=== PATIENT | male | born 1950 | race Hispanic/Latino ===

== ENCOUNTER 2017-07-01 08:26 | Inpatient (IN) | payer MEDICARE ==
[~2017-07-01] VITALS: Ht 170.2 cm; Wt 84.5 kg
[2017-07-01 08:44] LABS: BASOPHILS % (AUTO) 0.3 % (0.0-5.0); HEMATOCRIT 36.9 % (42-54); LYMPHOCYTES % (AUTO) 12.2 % (21.0-51.0); MEAN CORPUSCULAR HEMOGLOBIN 31.2 pg (27.0-33.0); MEAN CORPUSCULAR HGB CONC 33.7 g/dL (32.0-36.0); MEAN CORPUSCULAR VOLUME 92.6 fL (79-99); NEUTROPHILS % (AUTO) 80.5 % (40.0-77.0); PLATELET COUNT (AUTO) 200 K/uL (130-400); RED BLOOD CELL COUNT(AUTO) 3.98 MIL/uL (4.50-6.20); RED CELL DISTRIBUTION WIDTH 16.9 % (11.0-15.5); WHITE BLOOD COUNT (AUTO) 14.3 K/uL (4.8-10.8)
[2017-07-01 09:01] LABS: INR 0.98 (0.85-1.15); PARTIAL THROMBOPLASTIN TIME 36.9 SEC (26.3-35.5); PROTHROMBIN TIME 10.3 SEC (9.6-11.6)
[2017-07-01] MEDS ORDERED: NITROGLYCERIN 1GM/1 INCH PACKET TD ONE (09:06)
[2017-07-01] MEDS ORDERED: ONDANSETRON HCL 4 MG/2 ML VIAL ONE (09:06)
[2017-07-01] MEDS ORDERED: FAMOTIDINE/PF 20 MG/2 ML VIAL IV ONE (09:07)
[2017-07-01] MEDS ORDERED: SODIUM CHLORIDE 0.9% 1000ML 1,000 ML IV ONE (09:08)
[2017-07-01 09:14] LABS: ALBUMIN 3.5 g/dL (3.5-5.0); BILIRUBIN,TOTAL 0.4 mg/dL (0.2-1.0); CREATINE KINASE MB 3.2 ng/mL (0.5-3.6); POTASSIUM 4.8 mmol/L (3.5-5.1); TOTAL PROTEIN, SERUM 7.7 g/dL (6.0-8.3)
[2017-07-01 09:16] LABS: CREATININE 11.3 mg/dL (0.5-1.5)
[2017-07-01] MEDS ORDERED: METRONIDAZOLE 500MG/100ML BAG 100 ML ONE (11:25)
[2017-07-01] MEDS ORDERED: AMLODIPINE BESYLATE 5 MG TAB PO ONE (11:25)
[2017-07-01] MEDS ORDERED: METOPROLOL TARTRATE 25 MG TAB ONE (11:25)
[2017-07-01 13:18] VITALS: BP 144/86
[2017-07-01] MEDS ORDERED: LABETALOL HCL 5 MG/ML 20ML VIAL IV PRN (14:12)
[2017-07-01] MEDS ORDERED: GLUCAGON 1MG KIT 1 MG ML IM PRN (14:15)
[2017-07-01] MEDS ORDERED: ONDANSETRON HCL 4 MG/2 ML VIAL IVP PRN (14:15)
[2017-07-01] MEDS ORDERED: ACETAMINOPHEN 325 MG TAB PO PRN (14:15)
[2017-07-01] MEDS ORDERED: DEXTROSE 50%-WATER 50 ML DISP.SYRIN IV PRN (14:15)
[2017-07-01] MEDS ORDERED: LOPERAMIDE HCL 2 MG CAP PO PRN (14:15)
[2017-07-01] MEDS: METRONIDAZOLE 500MG/100ML BAG 100 ML IVPB SCH ×2 (14:16→22:18)
[2017-07-01] MEDS: AMLODIPINE BESYLATE 5 MG TAB PO SCH (14:17)
[2017-07-01] MEDS: METOPROLOL TARTRATE 25 MG TAB PO SCH ×2 (14:18→20:24)
[2017-07-01 14:59] LABS: HEMOGLOBIN A1C 5.6 % (4.0-6.0)
[2017-07-01 15:32] LABS: CREATINE KINASE MB 2.5 ng/mL (0.5-3.6); CREATINE KINASE, TOTAL 90 U/L (21-232); MYOGLOBIN 415 ng/mL (10-92); TROPONIN I < 0.04 ng/mL (0.00-0.06)
[2017-07-01 16:08] VITALS: BP 144/88
[2017-07-01] MEDS ORDERED: INSULIN R PO SS1 SQ SCH (16:30)
[2017-07-01] MEDS ORDERED: AEC81 PO (18:14)
[2017-07-01] MEDS ORDERED: AMLO10TA2 PO (18:14)
[2017-07-01] MEDS ORDERED: CALC667C10 PO (18:14)
[2017-07-01] MEDS ORDERED: PRAV40TA3 PO (18:14)
[2017-07-01 19:58] VITALS: BP 146/74
[2017-07-01] MEDS: LEVOFLOXACIN 750 MG/D5W 150 ML 150 ML IV SCH (20:24)
[2017-07-01] MEDS: ATORVASTATIN CALCIUM 10 MG TABLET PO SCH (20:24)
[2017-07-01 21:09] LABS: CREATINE KINASE MB 2.3 ng/mL (0.5-3.6); CREATINE KINASE, TOTAL 96 U/L (21-232); MYOGLOBIN 423 ng/mL (10-92); TROPONIN I < 0.04 ng/mL (0.00-0.06)
[2017-07-01 23:23] VITALS: BP 126/69
[2017-07-02 03:43] VITALS: BP 131/68
[2017-07-02] MEDS: METRONIDAZOLE 500MG/100ML BAG 100 ML IVPB SCH ×3 (05:26→21:48)
[2017-07-02 07:00] VITALS: BP 155/75
[2017-07-02] MEDS: AMLODIPINE BESYLATE 5 MG TAB PO SCH (09:00)
[2017-07-02] MEDS: METOPROLOL TARTRATE 25 MG TAB PO SCH ×2 (09:00→20:53)
[2017-07-02] MEDS ORDERED: AMLODIPINE BESYLATE 5 MG TAB PO SCH (09:00)
[2017-07-02 11:00] VITALS: BP 163/80
[2017-07-02] MEDS: CALCIUM ACETATE 667 MG CAPSULE PO SCH ×2 (11:41→18:49)
[2017-07-02] MEDS: ASPIRIN 81 MG EC TAB PO SCH (11:41)
[2017-07-02] MEDS ORDERED: ACETAMINOPHEN-CODEINE 300/30MG TAB PO PRN (15:00)
[2017-07-02] MEDS ORDERED: 0.9% SODIUM CHLORIDE 250 ML IV BAG IV PRN (15:45)
[2017-07-02] MEDS ORDERED: HEPARIN SODIUM 5000UNIT/ML 1ML VIAL IJ PRN (15:45)
[2017-07-02] MEDS ORDERED: SODIUM CHLORIDE 0.9% 1000ML 1,000 ML IV PRN (15:45)
[2017-07-02] MEDS ORDERED: ALBUMIN (HUMAN) 25% 100 ML IV PRN (15:45)
[2017-07-02 16:00] VITALS: BP 169/88
[2017-07-02 19:34] VITALS: BP 167/91
[2017-07-02] MEDS: ATORVASTATIN CALCIUM 10 MG TABLET PO SCH (20:53)
[2017-07-02 23:50] VITALS: BP_SYST 162; BP_DIAS 62; BP_DIAS 80
[2017-07-03 03:15] VITALS: BP 165/75
[2017-07-03 04:46] LABS: POTASSIUM 6.8 mmol/L (3.5-5.1)
[2017-07-03] MEDS: METRONIDAZOLE 500MG/100ML BAG 100 ML IVPB SCH ×3 (05:13→22:04)
[2017-07-03 05:37] LABS: BASOPHILS % (AUTO) 0.6 % (0.0-5.0); LYMPHOCYTES % (AUTO) 20.7 % (21.0-51.0); MEAN CORPUSCULAR HEMOGLOBIN 32.6 pg (27.0-33.0); MEAN CORPUSCULAR HGB CONC 34.9 g/dL (32.0-36.0); MEAN CORPUSCULAR VOLUME 93.4 fL (79-99); MONOCYTES % (AUTO) 9.7 % (3.0-13.0); PLATELET COUNT (AUTO) 169 K/uL (130-400); RED BLOOD CELL COUNT(AUTO) 3.32 MIL/uL (4.50-6.20); RED CELL DISTRIBUTION WIDTH 16.1 % (11.0-15.5); WHITE BLOOD COUNT (AUTO) 8.4 K/uL (4.8-10.8)
[2017-07-03] MEDS: CALCIUM ACETATE 667 MG CAPSULE PO SCH ×2 (07:44→17:28)
[2017-07-03 07:50] VITALS: BP 152/78
[2017-07-03] MEDS ORDERED: SODIUM POLYSTYRENE SULFONATE 15 GM/60 ML ML PO SCH (08:00)
[2017-07-03] MEDS: ASPIRIN 81 MG EC TAB PO SCH (09:00)
[2017-07-03] MEDS: AMLODIPINE BESYLATE 5 MG TAB PO SCH (09:00)
[2017-07-03] MEDS ORDERED: LEVOFLOXACIN 750 MG/D5W 150 ML 150 ML IV SCH (09:00)
[2017-07-03] MEDS: METOPROLOL TARTRATE 25 MG TAB PO SCH ×2 (09:00→22:03)
[2017-07-03 11:30] VITALS: BP 165/86
[2017-07-03] MEDS ORDERED: SODIUM BICARB 8.4% 50ML SYRINGE IVP SCH (12:00)
[2017-07-03] MEDS ORDERED: CALCIUM GLUCONATE 1 GM/10 ML VIAL IV SCH (12:00)
[2017-07-03] MEDS ORDERED: DEXTROSE 50%-WATER 25 GM/50 ML VIAL IV SCH (12:00)
[2017-07-03] MEDS ORDERED: INSULIN HUMULIN R 100 UNIT/ML 3ML SQ SCH (12:00)
[2017-07-03] MEDS ORDERED: INSULIN HUMULIN R 100 UNIT/ML 3ML ONE (12:09)
[2017-07-03] MEDS ORDERED: INSULIN HUMULIN R 100 UNIT/ML 3ML IV SCH (12:15)
[2017-07-03] MEDS ORDERED: CALCIUM GLUCONATE 2 GM in SODIUM CHLORIDE 0.9% 100 ML IV SCH (12:17)
[2017-07-03 16:00] VITALS: BP 178/89
[2017-07-03 19:55] VITALS: BP 156/85
[2017-07-03] MEDS: ATORVASTATIN CALCIUM 10 MG TABLET PO SCH (22:03)
[2017-07-03] MEDS: LEVOFLOXACIN 750 MG/D5W 150 ML 150 ML IV SCH (22:03)
[2017-07-03 23:40] VITALS: BP 130/70
[2017-07-04] VITALS (7 sets, daily range): BP systolic 146–172; BP diastolic 77–99
[2017-07-04 05:02] LABS: CREATININE 10.6 mg/dL (0.5-1.5); POTASSIUM 6.1 mmol/L (3.5-5.1)
[2017-07-04] MEDS: METRONIDAZOLE 500MG/100ML BAG 100 ML IVPB SCH ×3 (05:22→21:11)
[2017-07-04] MEDS: CALCIUM ACETATE 667 MG CAPSULE PO SCH ×2 (08:00→17:48)
[2017-07-04] MEDS: ASPIRIN 81 MG EC TAB PO SCH (09:00)
[2017-07-04] MEDS: AMLODIPINE BESYLATE 5 MG TAB PO SCH (09:00)
[2017-07-04] MEDS: METOPROLOL TARTRATE 25 MG TAB PO SCH ×2 (09:00→21:11)
[2017-07-04] MEDS: SODIUM POLYSTYRENE SULFONATE 15 GM/60 ML ML PO SCH (10:39)
[2017-07-04] MEDS ORDERED: LIDOCAINE HCL 1% MDV 50ML VIAL ONE (11:17)
[2017-07-04] MEDS ORDERED: ALTEPLASE 2 MG/2 ML IVCATH ONE (11:19)
[2017-07-04] MEDS ORDERED: ISOVUE-300 100 ML VIAL IV ONE (11:36)
[2017-07-04] MEDS ORDERED: HEPARIN SODIUM 1000UNIT/ML 10ML VIAL ONE (11:59)
[2017-07-04] MEDS: ATORVASTATIN CALCIUM 10 MG TABLET PO SCH (21:11)
[2017-07-05 03:25] VITALS: BP 172/83
[2017-07-05] MEDS: METRONIDAZOLE 500MG/100ML BAG 100 ML IVPB SCH ×3 (05:52→23:56)
[2017-07-05 08:00] VITALS: BP 133/91
[2017-07-05] MEDS: CALCIUM ACETATE 667 MG CAPSULE PO SCH ×2 (08:35→15:09)
[2017-07-05] MEDS: METOPROLOL TARTRATE 25 MG TAB PO SCH ×2 (08:35→21:40)
[2017-07-05] MEDS: ASPIRIN 81 MG EC TAB PO SCH (08:35)
[2017-07-05] MEDS: AMLODIPINE BESYLATE 5 MG TAB PO SCH (08:36)
[2017-07-05] MEDS: SODIUM POLYSTYRENE SULFONATE 15 GM/60 ML ML PO SCH (10:15)
[2017-07-05 11:35] VITALS: BP 118/57
[2017-07-05 16:00] VITALS: BP 123/58
[2017-07-05 19:42] VITALS: BP 158/89
[2017-07-05] MEDS: LEVOFLOXACIN 750 MG/D5W 150 ML 150 ML IV SCH (21:40)
[2017-07-05] MEDS: ATORVASTATIN CALCIUM 10 MG TABLET PO SCH (21:40)
[2017-07-05 23:56] VITALS: BP 165/96
[2017-07-06 04:46] VITALS: BP 138/62
[2017-07-06] MEDS: METRONIDAZOLE 500MG/100ML BAG 100 ML IVPB SCH (06:00)
[2017-07-06] MEDS: SODIUM POLYSTYRENE SULFONATE 15 GM/60 ML ML PO SCH (07:54)
[2017-07-06 08:00] VITALS: BP 135/70
[2017-07-06] MEDS: ASPIRIN 81 MG EC TAB PO SCH (08:38)
[2017-07-06] MEDS: CALCIUM ACETATE 667 MG CAPSULE PO SCH (08:38)
[2017-07-06 11:52] VITALS: BP 144/82
[2017-07-06 13:17] LABS: CREATININE 5.8 mg/dL (0.5-1.5); POTASSIUM 4.2 mmol/L (3.5-5.1)
== END 2017-07-06 14:35 | disposition home or self-care (01) | DRG 853 ==
LOC: EDH 08:26 → EDHIP 10:18 → 3DH 12:39
PROVIDERS: ADMIT Internal Medicine Pulmonary Disease; ATTEND Internal Medicine Pulmonary Disease
PROC: 057C3ZZ Dilation of Left Basilic Vein, Percutaneous Approach (ICD-10-PCS; principal; 2017-07-04)
PROC: B51W1ZZ Fluoroscopy of Dialysis Shunt/Fistula using Low Osmolar Contrast (ICD-10-PCS; 2017-07-04)
PROC: B51N1ZZ Fluoroscopy of Left Upper Extremity Veins using Low Osmolar Contrast (ICD-10-PCS; 2017-07-04)
DX: A41.9 Sepsis, unspecified organism (principal); I21.4 Non-ST elevation (NSTEMI) myocardial infarction; E11.22 Type 2 diabetes mellitus with diabetic chronic kidney disease; I12.0 Hypertensive chronic kidney disease with stage 5 chronic kidney disease or end stage renal disease; E87.1 Hypo-osmolality and hyponatremia; I25.110 Atherosclerotic heart disease of native coronary artery with unstable angina pectoris; N18.6 End stage renal disease; T82.858A Stenosis of other vascular prosthetic devices, implants and grafts, initial encounter; I16.1 Hypertensive emergency; E87.5 Hyperkalemia; D63.1 Anemia in chronic kidney disease; K52.9 Noninfective gastroenteritis and colitis, unspecified; Y83.8 Other surgical procedures as the cause of abnormal reaction of the patient, or of later complication, without mention of misadventure at the time of the procedure; Z79.899 Other long term (current) drug therapy; Z90.49 Acquired absence of other specified parts of digestive tract; Z95.5 Presence of coronary angioplasty implant and graft; Z99.2 Dependence on renal dialysis; I25.2 Old myocardial infarction; Y92.89 Other specified places as the place of occurrence of the external cause
CPT/HCPCS: 36415; 36902; 71045; 71046; 80048; 80053; 82550; 82553; 82948; 83036; 83874; 84132; 84484; 85025; 85610; 85730; 87507; 90935; 93005; C1769; C1894; J0610; J1644; J1815; J1956; J2405; J2997; J3490; J7030; J7070; Q9967

== ENCOUNTER 2017-11-05 03:17 | Inpatient (IN) | payer MEDICARE ==
[~2017-11-05] VITALS: Ht 170.2 cm; Wt 88.0 kg
[~2017-11-05 03:17] MED LIST: AEC81 PO; AMLO10TA2 PO; CALC667C10 PO; PRAV40TA3 PO
[2017-11-05] MEDS ORDERED: IPRATROPIUM/ALBUTEROL SULFATE 3 ML SOLUTION IH ONE (03:31)
[2017-11-05 03:46] LABS: BASOPHILS % (AUTO) 0.5 % (0.0-5.0); EOSINOPHILS % (AUTO) 0.1 % (0.0-8.0); MEAN CORPUSCULAR HGB CONC 32.2 g/dL (32.0-36.0); MEAN CORPUSCULAR VOLUME 96.3 fL (79-99); MONOCYTES % (AUTO) 8.9 % (3.0-13.0); NEUTROPHILS % (AUTO) 44.5 % (40.0-77.0); NUCLEATED RED BLOOD CELLS 0.1 % (0.0-0.19); PLATELET COUNT (AUTO) 311 K/uL (130-400); RED BLOOD CELL COUNT(AUTO) 3.53 MIL/uL (4.50-6.20); RED CELL DISTRIBUTION WIDTH 14.9 % (11.0-15.5); WHITE BLOOD COUNT (AUTO) 16.5 K/uL (4.8-10.8)
[2017-11-05 03:49] LABS: INR 1.01 (0.85-1.15); PARTIAL THROMBOPLASTIN TIME 35.3 SEC (26.3-35.5); PROTHROMBIN TIME 10.6 SEC (9.6-11.6)
[2017-11-05 03:55] LABS: ALBUMIN 3.3 g/dL (3.5-5.0); BILIRUBIN,TOTAL 0.3 mg/dL (0.2-1.0); TOTAL PROTEIN, SERUM 7.9 g/dL (6.0-8.3)
[2017-11-05 03:58] LABS: CREATININE 13.2 mg/dL (0.5-1.5)
[2017-11-05 04:05] LABS: B-TYPE NATRIURETIC PEPTIDE 814 pg/mL (0-100)
[2017-11-05] MEDS ORDERED: ZOSYN 3.375GM+NS 50ML 50 ML IV ONE ×2 (04:14→16:08)
[2017-11-05 04:37] LABS: ABG BASE EXCESS -5.2 mmol/L (-2.0-3.0); ABG HCO3 20.3 mmol/L (21.0-28.0); ABG OXYGEN SATURATION 99.8 % (95.0-99.0); ABG PCO2 39 mmHg (35-48)
[2017-11-05] MEDS ORDERED: ASPIRIN 325 MG TABLET ONE (09:13)
[2017-11-05] MEDS ORDERED: PANTOPRAZOLE SODIUM 40 MG TABLET.DR PO ONE (09:14)
[2017-11-05] MEDS ORDERED: HEPARIN SODIUM 1000UNIT/ML 10ML VIAL IV ONE (12:00)
[2017-11-05] MEDS ORDERED: CALCIUM CHLORIDE 100 MG/ML 10 ML SYG IVP ONE (12:00)
[2017-11-05] MEDS ORDERED: ALBUMIN (HUMAN) 25% 100 ML IV PRN (12:45)
[2017-11-05] MEDS ORDERED: 0.9% SODIUM CHLORIDE 250 ML IV BAG IV PRN (12:45)
[2017-11-05] MEDS ORDERED: SODIUM CHLORIDE 0.9% 1000ML 1,000 ML IV PRN (12:45)
[2017-11-05 15:17] LABS: CREATINE KINASE MB 11.3 ng/mL (0.5-3.6)
[2017-11-05 15:23] LABS: TROPONIN I 5.9 ng/mL (0.00-0.06)
[2017-11-05] MEDS ORDERED: SODIUM CHLORIDE 0.9% 250 ML IV ONE (16:17)
[2017-11-05 16:45] VITALS: BP 174/78
[2017-11-05] MEDS ORDERED: CLON0.1T PO (16:52)
[2017-11-05] MEDS ORDERED: CLONIDINE HCL 0.1 MG TABLET PO PRN (17:00)
[2017-11-05] MEDS ORDERED: ACETAMINOPHEN 325 MG TAB PO PRN (17:00)
[2017-11-05] MEDS: CALCIUM ACETATE 667 MG CAPSULE PO SCH (18:24)
[2017-11-05] MEDS: CLONIDINE HCL 0.1 MG TABLET PO PRN (18:25)
[2017-11-05 19:40] VITALS: BP 174/81
[2017-11-05] MEDS: DOXYCYCLINE HYCLATE 100 MG TABLET PO SCH (20:32)
[2017-11-05] MEDS: HEPARIN SODIUM 5000UNIT/ML 1ML VIAL SQ SCH (20:34)
[2017-11-05] MEDS: GUAIFENESIN-CODEINE 5 ML SYRUP PO PRN (21:15)
[2017-11-05] MEDS ORDERED: NITROGLYCERIN 0.4 MG SL TAB SL PRN (22:15)
[2017-11-05] MEDS: METOPROLOL TARTRATE 25 MG TAB PO SCH (22:15)
[2017-11-05 22:35] LABS: HEMATOCRIT 28.2 % (42-54); MEAN CORPUSCULAR HEMOGLOBIN 32.2 pg (27.0-33.0); MEAN CORPUSCULAR HGB CONC 34.1 g/dL (32.0-36.0); MEAN CORPUSCULAR VOLUME 94.4 fL (79-99); PLATELET COUNT (AUTO) 216 K/uL (130-400); RED BLOOD CELL COUNT(AUTO) 2.99 MIL/uL (4.50-6.20); WHITE BLOOD COUNT (AUTO) 8.8 K/uL (4.8-10.8)
[2017-11-05 22:44] LABS: INR 1.05 (0.85-1.15); PARTIAL THROMBOPLASTIN TIME 37.9 SEC (26.3-35.5)
[2017-11-05 23:35] VITALS: BP 127/58
[2017-11-06] VITALS (17 sets, daily range): BP systolic 135–182; BP diastolic 62–93
[2017-11-06 03:50] LABS: HEMATOCRIT 26.9 % (42-54); MEAN CORPUSCULAR HEMOGLOBIN 33.3 pg (27.0-33.0); MEAN CORPUSCULAR HGB CONC 35.2 g/dL (32.0-36.0); MEAN CORPUSCULAR VOLUME 94.5 fL (79-99); NUCLEATED RED BLOOD CELLS 0.2 % (0.0-0.19); PLATELET COUNT (AUTO) 191 K/uL (130-400); RED BLOOD CELL COUNT(AUTO) 2.85 MIL/uL (4.50-6.20); RED CELL DISTRIBUTION WIDTH 14.7 % (11.0-15.5)
[2017-11-06 04:21] LABS: POTASSIUM 4.4 mmol/L (3.5-5.1); THYROID STIMULATING HORMONE 2.01 uIU/mL (0.36-3.74)
[2017-11-06 04:34] LABS: CREATININE 10.7 mg/dL (0.5-1.5)
[2017-11-06] MEDS: ZOSYN 3.375GM+NS 50ML 50 ML IV SCH ×2 (04:58→16:00)
[2017-11-06] MEDS: HEPARIN SODIUM 5000UNIT/ML 1ML VIAL SQ SCH (07:00)
[2017-11-06] MEDS: CALCIUM ACETATE 667 MG CAPSULE PO SCH ×2 (07:39→16:24)
[2017-11-06] MEDS: DOXYCYCLINE HYCLATE 100 MG TABLET PO SCH ×2 (08:19→22:14)
[2017-11-06] MEDS: PANTOPRAZOLE SODIUM 40 MG TABLET.DR PO SCH (08:19)
[2017-11-06] MEDS: METOPROLOL TARTRATE 25 MG TAB PO SCH ×2 (08:19→22:17)
[2017-11-06] MEDS: ASPIRIN 325MG EC TAB 325 MG TABLET.DR PO SCH (09:00)
[2017-11-06] MEDS ORDERED: ENOXAPARIN SODIUM 30 MG/0.3 ML SQ SCH (09:00)
[2017-11-06] MEDS: CLONIDINE HCL 0.1 MG TABLET PO PRN (12:11)
[2017-11-06] MEDS: GUAIFENESIN-CODEINE 5 ML SYRUP PO PRN (12:13)
[2017-11-06] MEDS ORDERED: SODIUM BICARB 50MEQ 50ML VIAL ONE (15:55)
[2017-11-06] MEDS ORDERED: HEPARIN SODIUM 1000UNIT/ML 10ML VIAL ONE (15:56)
[2017-11-06] MEDS ORDERED: NITROGLYCERIN 5 MG/ML 10 ML VIAL IV ONE (15:56)
[2017-11-06] MEDS ORDERED: IOPAMIDOL-370 75 ML VIAL IV ONE (15:56)
[2017-11-06] MEDS ORDERED: LIDOCAINE HCL 2% 20ML ONE (15:56)
[2017-11-06] MEDS ORDERED: ISOVUE-370 50ML VIAL IV ONE (15:56)
[2017-11-06] MEDS ORDERED: NITROGLYCERIN 4.1 GM SPRAY TL ONE (16:21)
[2017-11-06] MEDS ORDERED: LABETALOL HCL 5 MG/ML 20ML VIAL IV ONE (16:26)
[2017-11-06] MEDS ORDERED: NITROGLYCERIN 50 MG/D5% WATER 1 BOT ONE (16:43)
[2017-11-06] MEDS ORDERED: NITROGLYCERIN 50 MG/D5% WATER 250 BOT IV SCH (16:45)
[2017-11-06] MEDS ORDERED: ALPRAZOLAM 0.5 MG TABLET PO PRN (17:15)
[2017-11-06] MEDS: HYDRALAZINE HCL 20 MG/ML VIAL IV PRN (18:41)
[2017-11-06] MEDS ORDERED: METOPROLOL TARTRATE 25 MG TAB PO SCH (21:00)
[2017-11-06] MEDS: INSULIN HUMULIN R 100 UNIT/ML 3ML SQ SCH (21:00)
[2017-11-06] MEDS: ATORVASTATIN CALCIUM 40 MG TABLET PO SCH (22:15)
[2017-11-07] VITALS (24 sets, daily range): BP systolic 127–183; BP diastolic 63–103
[2017-11-07] MEDS: GUAIFENESIN-CODEINE 5 ML SYRUP PO PRN ×2 (02:00→21:38)
[2017-11-07 04:47] LABS: HEMATOCRIT 27.6 % (42-54); MEAN CORPUSCULAR HEMOGLOBIN 32.6 pg (27.0-33.0); MEAN CORPUSCULAR HGB CONC 34.3 g/dL (32.0-36.0); MEAN CORPUSCULAR VOLUME 94.9 fL (79-99); PLATELET COUNT (AUTO) 217 K/uL (130-400); RED BLOOD CELL COUNT(AUTO) 2.91 MIL/uL (4.50-6.20); RED CELL DISTRIBUTION WIDTH 15.1 % (11.0-15.5); WHITE BLOOD COUNT (AUTO) 10.5 K/uL (4.8-10.8)
[2017-11-07 05:04] LABS: CREATININE 7.6 mg/dL (0.5-1.5); MAGNESIUM 1.8 mg/dL (1.80-2.40); POTASSIUM 3.7 mmol/L (3.5-5.1)
[2017-11-07] MEDS: INSULIN HUMULIN R 100 UNIT/ML 3ML SQ SCH ×4 (06:40→21:00)
[2017-11-07] MEDS: ZOSYN 3.375GM+NS 50ML 50 ML IV SCH ×2 (07:26→16:47)
[2017-11-07] MEDS: CALCIUM ACETATE 667 MG CAPSULE PO SCH ×2 (07:38→16:47)
[2017-11-07] MEDS: DOXYCYCLINE HYCLATE 100 MG TABLET PO SCH ×2 (08:39→20:29)
[2017-11-07] MEDS: ASPIRIN 325MG EC TAB 325 MG TABLET.DR PO SCH (08:39)
[2017-11-07] MEDS: PANTOPRAZOLE SODIUM 40 MG TABLET.DR PO SCH (08:39)
[2017-11-07] MEDS: METOPROLOL TARTRATE 25 MG TAB PO SCH ×3 (08:39→20:29)
[2017-11-07] MEDS ORDERED: ACETAMINOPHEN 325 MG TAB PO SCH (10:15)
[2017-11-07] MEDS: AMLODIPINE BESYLATE 5 MG TAB PO SCH (11:03)
[2017-11-07] MEDS: CEFUROXIME SODIUM 1.5 GM VIAL IVP SCH (12:30)
[2017-11-07 12:57] LABS: HEMOGLOBIN A1C 6.6 % (4.0-6.0)
[2017-11-07 13:42] LABS: CHOLESTEROL 138 mg/dL (<200); HDL CHOLESTEROL 30 mg/dL (29-71); LDL DIRECT 83 mg/dL (0-99); TRIGLYCERIDES 155 mg/dL (30-200)
[2017-11-07] MEDS: ATORVASTATIN CALCIUM 40 MG TABLET PO SCH (20:29)
[2017-11-08] VITALS (19 sets, daily range): BP systolic 121–175; BP diastolic 65–101
[2017-11-08] MEDS: ZOSYN 3.375GM+NS 50ML 50 ML IV SCH ×2 (03:10→16:00)
[2017-11-08] MEDS: HYDRALAZINE HCL 20 MG/ML VIAL IV PRN ×2 (03:10→06:29)
[2017-11-08 03:50] LABS: HEMATOCRIT 26.9 % (42-54); MEAN CORPUSCULAR HEMOGLOBIN 33.2 pg (27.0-33.0); MEAN CORPUSCULAR HGB CONC 35.3 g/dL (32.0-36.0); NUCLEATED RED BLOOD CELLS 0.1 % (0.0-0.19); PLATELET COUNT (AUTO) 208 K/uL (130-400); RED BLOOD CELL COUNT(AUTO) 2.87 MIL/uL (4.50-6.20); RED CELL DISTRIBUTION WIDTH 15.3 % (11.0-15.5); WHITE BLOOD COUNT (AUTO) 9.6 K/uL (4.8-10.8)
[2017-11-08 03:52] LABS: INR 1.1 (0.85-1.15); PARTIAL THROMBOPLASTIN TIME 32.5 SEC (26.3-35.5); PROTHROMBIN TIME 11.5 SEC (9.6-11.6)
[2017-11-08 03:58] LABS: ALBUMIN 2.8 g/dL (3.5-5.0); BILIRUBIN,TOTAL 0.5 mg/dL (0.2-1.0); POTASSIUM 4.1 mmol/L (3.5-5.1); TOTAL PROTEIN, SERUM 6.9 g/dL (6.0-8.3)
[2017-11-08 04:01] LABS: CREATININE 10.3 mg/dL (0.5-1.5)
[2017-11-08] MEDS: INSULIN HUMULIN R 100 UNIT/ML 3ML SQ SCH ×2 (06:24→11:30)
[2017-11-08] MEDS: METOPROLOL TARTRATE 25 MG TAB PO SCH (07:16)
[2017-11-08] MEDS ORDERED: NITROGLYCERIN 50 MG/D5% WATER 1 BOT ONE (07:48)
[2017-11-08] MEDS ORDERED: PAPAVERINE HCL 30 MG/ML 2ML VIAL ONE (07:50)
[2017-11-08] MEDS ORDERED: OCTYL 2-CYANOACRYLATE 1 EACH TP ONE (07:50)
[2017-11-08] MEDS ORDERED: EPINEPHRINE 1 MG/ML 30ML VIAL IJ ONE (07:50)
[2017-11-08] MEDS ORDERED: BACITRACIN 50,000 UNIT VIAL ONE (07:50)
[2017-11-08] MEDS ORDERED: CEFUROXIME 1.5GM+NS 100ML 100 ML IV SCH (08:00)
[2017-11-08] MEDS: CALCIUM ACETATE 667 MG CAPSULE PO SCH ×2 (08:00→17:00)
[2017-11-08] MEDS: ASPIRIN 325MG EC TAB 325 MG TABLET.DR PO SCH (08:17)
[2017-11-08] MEDS: DOXYCYCLINE HYCLATE 100 MG TABLET PO SCH ×3 (08:17→20:09)
[2017-11-08] MEDS: AMLODIPINE BESYLATE 5 MG TAB PO SCH (08:18)
[2017-11-08] MEDS: PANTOPRAZOLE SODIUM 40 MG TABLET.DR PO SCH (08:18)
[2017-11-08] MEDS ORDERED: NOREPINEPHRINE BITARTRATE 1 MG/1 ML ML IV ONE ×2 (09:06→11:56)
[2017-11-08] MEDS ORDERED: SODIUM BICARB 50MEQ 50ML VIAL ONE ×2 (09:08→22:21)
[2017-11-08] MEDS ORDERED: POTASSIUM CHLORIDE 20MEQ/100ML 300 ML IV ONE (09:08)
[2017-11-08] MEDS ORDERED: DELNIDO FORMULA 0 BAG IV ONE (09:11)
[2017-11-08] MEDS ORDERED: THROMBIN-JMI 5000 UNIT/VIAL TP ONE (09:11)
[2017-11-08] MEDS ORDERED: SODIUM BICARB 8.4% 50ML SYRINGE ONE (09:22)
[2017-11-08] MEDS: IPRATROPIUM/ALBUTEROL SULFATE 3 ML SOLUTION IH PRN (09:57)
[2017-11-08] MEDS ORDERED: GLYCOPYRROLATE 0.2 MG/ML 5 ML VIAL ONE (11:56)
[2017-11-08] MEDS ORDERED: MILRINONE-D5W 20 MG/100 ML 0 ML IV ONE (11:56)
[2017-11-08] MEDS ORDERED: PROTAMINE SULFATE 10 MG/ML 25ML VIAL IV ONE (11:56)
[2017-11-08] MEDS ORDERED: AMINOCAPROIC ACID 250 MG/ML 20 ML VIAL IV ONE (11:56)
[2017-11-08] MEDS ORDERED: HEPARIN SODIUM 1000UNIT/ML 10ML VIAL ONE (11:56)
[2017-11-08] MEDS ORDERED: ESMOLOL HCL 10 MG/ML 10 ML VIAL ONE (11:56)
[2017-11-08] MEDS ORDERED: NEOSTIGMINE 5MG/5ML SYR IV ONE (11:56)
[2017-11-08] MEDS ORDERED: LIDOCAINE PF 2% 5ML ABBOJECT ONE (11:56)
[2017-11-08] MEDS ORDERED: EPINEPHRINE 1 MG/ML AMPULE ONE (11:56)
[2017-11-08] MEDS ORDERED: ROCURONIUM BROMIDE 10MG/1ML 5ML VL ONE (11:56)
[2017-11-08] MEDS ORDERED: PROPOFOL 10 MG/ML 20ML VIAL IV ONE (11:57)
[2017-11-08] MEDS ORDERED: MIDAZOLAM HCL 1 MG/ML 5ML VIAL ONE (11:57)
[2017-11-08] MEDS ORDERED: FENTANYL CITRATE PF 50 MCG/1 ML 20ML VIAL IJ ONE (11:57)
[2017-11-08] MEDS: CEFUROXIME SODIUM 1.5 GM VIAL IVP SCH ×2 (12:25→12:30)
[2017-11-08 12:35] LABS: ABG HCO3 22.1 mmol/L (21.0-28.0); ABG OXYGEN SATURATION 99.2 % (95.0-99.0); ABG PCO2 35 mmHg (35-48)
[2017-11-08] MEDS ORDERED: LIDOCAINE HCL 1% MDV 50ML VIAL ONE (13:04)
[2017-11-08 14:35] LABS: ABG BASE EXCESS -1.9 mmol/L (-2.0-3.0); ABG HCO3 22.7 mmol/L (21.0-28.0); ABG PCO2 38 mmHg (35-48)
[2017-11-08] MEDS ORDERED: CEFUROXIME SODIUM 1.5 GM VIAL ONE (15:25)
[2017-11-08 15:45] LABS: ABG BASE EXCESS -5.8 mmol/L (-2.0-3.0); ABG HCO3 19.9 mmol/L (21.0-28.0); ABG OXYGEN SATURATION 99.2 % (95.0-99.0); ABG PCO2 40 mmHg (35-48)
[2017-11-08 16:58] LABS: ABG BASE EXCESS -2.5 mmol/L (-2.0-3.0); ABG HCO3 22.7 mmol/L (21.0-28.0); ABG OXYGEN SATURATION 96.3 % (95.0-99.0); ABG PCO2 41 mmHg (35-48)
[2017-11-08] MEDS ORDERED: SODIUM CHLORIDE 0.9% 250 ML IV PRN (17:00)
[2017-11-08] MEDS ORDERED: AMINOCAPROIC ACID 15,000 MG in SODIUM CHLORIDE 0.9% 250 ML IV SCH (17:00)
[2017-11-08] MEDS ORDERED: ACETAMINOPHEN 325 MG TAB PO PRN (17:00)
[2017-11-08] MEDS ORDERED: NITROGLYCERIN 50 MG/D5% WATER 250 BOT IV SCH (17:00)
[2017-11-08] MEDS ORDERED: TRAMADOL HCL 50 MG TABLET PO PRN ×2 (17:00)
[2017-11-08] MEDS ORDERED: NOREPINEPHRINE 4MG/NS 250ML 250 ML IV PRN (17:00)
[2017-11-08] MEDS ORDERED: MORPHINE SULFATE 4 MG/1ML SYG IV PRN (17:00)
[2017-11-08] MEDS ORDERED: ALBUMIN (HUMAN) 5% 250 ML IV PRN (17:00)
[2017-11-08] MEDS ORDERED: NICARDIPINE HCL 100 MG in SODIUM CHLORIDE 0.9% 100 ML IV PRN (17:00)
[2017-11-08] MEDS ORDERED: ONDANSETRON HCL 4 MG/2 ML VIAL IV PRN (17:00)
[2017-11-08] MEDS ORDERED: DEXTROSE 50%-WATER 50 ML DISP.SYRIN IV PRN (17:00)
[2017-11-08] MEDS ORDERED: GLUCAGON 1MG KIT 1 MG ML IM PRN (17:00)
[2017-11-08] MEDS ORDERED: MORPHINE SULFATE 2 MG/ML 1ML SYG IV PRN (17:00)
[2017-11-08] MEDS ORDERED: POTASSIUM PHOS 15 mMOL+NS250ML 250 ML IV PRN (17:00)
[2017-11-08] MEDS ORDERED: POTASSIUM CHLORIDE 20MEQ/100ML 100 ML IV PRN (17:00)
[2017-11-08] MEDS ORDERED: INSULIN REGULAR, HUMAN 3ML 100 UNIT in SODIUM CHLORIDE 0.9% 99 ML IV SCH ×2 (17:00)
[2017-11-08] MEDS ORDERED: CALCIUM GLUCONATE 1 GM in SODIUM CHLORIDE 0.9% 50 ML IV PRN (17:00)
[2017-11-08] MEDS ORDERED: EPINEPHRINE 2 MG in SODIUM CHLORIDE 0.9% 250 ML IV PRN (17:00)
[2017-11-08] MEDS ORDERED: MAGNESIUM 2GM PREMIX 50ML 50 ML IV PRN (17:00)
[2017-11-08] MEDS ORDERED: SODIUM CHLORIDE 0.9% 1000ML 1,000 ML IV SCH (17:00)
[2017-11-08] MEDS ORDERED: SODIUM CHLORIDE 0.9% 500ML 500 ML IV SCH (17:00)
[2017-11-08] MEDS ORDERED: ACETAMINOPHEN 650 MG SUPPOSITORY RC PRN (17:00)
[2017-11-08] MEDS ORDERED: SODIUM CHLORIDE 0.9% 10 ML VIAL IVP PRN (17:00)
[2017-11-08] MEDS ORDERED: FENTANYL CITRATE PF 50 MCG/1 ML 2ML VIAL ONE ×2 (17:21→17:22)
[2017-11-08 18:14] LABS: ABG BASE EXCESS -3.6 mmol/L (-2.0-3.0); ABG HCO3 21.6 mmol/L (21.0-28.0); ABG OXYGEN SATURATION 92.8 % (95.0-99.0); ABG PCO2 40 mmHg (35-48)
[2017-11-08 18:19] LABS: HEMATOCRIT 28.4 % (42-54); MEAN CORPUSCULAR HEMOGLOBIN 31.6 pg (27.0-33.0); MEAN CORPUSCULAR HGB CONC 33.6 g/dL (32.0-36.0); MEAN CORPUSCULAR VOLUME 94.2 fL (79-99); PLATELET COUNT (AUTO) 213 K/uL (130-400); RED BLOOD CELL COUNT(AUTO) 3.01 MIL/uL (4.50-6.20); RED CELL DISTRIBUTION WIDTH 15.2 % (11.0-15.5)
[2017-11-08 18:36] LABS: MAGNESIUM 1.6 mg/dL (1.80-2.40); PHOSPHORUS 7.5 mg/dL (2.5-4.9); POTASSIUM 4.4 mmol/L (3.5-5.1)
[2017-11-08 22:20] LABS: ABG BASE EXCESS -5.4 mmol/L (-2.0-3.0); ABG HCO3 19.1 mmol/L (21.0-28.0); ABG OXYGEN SATURATION 98.4 % (95.0-99.0); ABG PCO2 34 mmHg (35-48)
[2017-11-08] MEDS: SODIUM BICARB 8.4% 50ML SYRINGE IV PRN ×2 (22:21→22:22)
[2017-11-09] VITALS (21 sets, daily range): BP systolic 91–134; BP diastolic 50–80
[2017-11-09] MEDS: PROPOFOL 1000 MG/100 ML 100 ML IV PRN ×2 (00:20→05:27)
[2017-11-09] MEDS: IPRATROPIUM/ALBUTEROL SULFATE 3 ML SOLUTION IH SCH ×5 (00:45→23:30)
[2017-11-09] MEDS ORDERED: CEFUROXIME SODIUM 1.5 GM VIAL IVP SCH (01:00)
[2017-11-09] MEDS ORDERED: CEFUROXIME 1.5GM+NS 100ML 100 ML IV SCH (01:00)
[2017-11-09] MEDS: IPRATROPIUM/ALBUTEROL SULFATE 3 ML SOLUTION IH PRN (01:39)
[2017-11-09] MEDS: CEFUROXIME SODIUM 1.5 GM VIAL IVP SCH ×2 (03:58→17:36)
[2017-11-09] MEDS: ZOSYN 3.375GM+NS 50ML 50 ML IV SCH ×2 (04:02→17:36)
[2017-11-09 04:10] LABS: ABG BASE EXCESS 0.8 mmol/L (-2.0-3.0); ABG HCO3 23.8 mmol/L (21.0-28.0); ABG OXYGEN SATURATION 98.6 % (95.0-99.0); ABG PCO2 34 mmHg (35-48)
[2017-11-09 04:17] LABS: MEAN CORPUSCULAR HEMOGLOBIN 31.5 pg (27.0-33.0); MEAN CORPUSCULAR HGB CONC 33.4 g/dL (32.0-36.0); MEAN CORPUSCULAR VOLUME 94.4 fL (79-99); PLATELET COUNT (AUTO) 189 K/uL (130-400); RED BLOOD CELL COUNT(AUTO) 2.85 MIL/uL (4.50-6.20); RED CELL DISTRIBUTION WIDTH 15.4 % (11.0-15.5); WHITE BLOOD COUNT (AUTO) 14.7 K/uL (4.8-10.8)
[2017-11-09 04:29] LABS: MAGNESIUM 2.4 mg/dL (1.80-2.40); POTASSIUM 4.2 mmol/L (3.5-5.1)
[2017-11-09 04:36] LABS: CREATININE 12.2 mg/dL (0.5-1.5)
[2017-11-09] MEDS: CALCIUM ACETATE 667 MG CAPSULE PO SCH ×2 (08:00→17:00)
[2017-11-09] MEDS: DOXYCYCLINE HYCLATE 100 MG TABLET PO SCH ×2 (09:00→20:25)
[2017-11-09] MEDS: FAMOTIDINE/PF 20 MG/2 ML VIAL IV SCH (09:58)
[2017-11-09 12:07] LABS: ABG BASE EXCESS -0.3 mmol/L (-2.0-3.0); ABG HCO3 25.6 mmol/L (21.0-28.0); ABG OXYGEN SATURATION 99.7 % (95.0-99.0); ABG PCO2 47 mmHg (35-48)
[2017-11-09] MEDS: METOCLOPRAMIDE 10 MG/2 ML VIAL IVP SCH ×2 (12:44→20:26)
[2017-11-09 14:40] LABS: ABG BASE EXCESS 3.7 mmol/L (-2.0-3.0); ABG OXYGEN SATURATION 95.4 % (95.0-99.0); ABG PCO2 46 mmHg (35-48)
[2017-11-09] MEDS: CALCIUM GLUCONATE 1 GM in SODIUM CHLORIDE 0.9% 50 ML IV SCH (17:43)
[2017-11-09] MEDS: ATORVASTATIN CALCIUM 20 MG TABLET PO SCH (20:25)
[2017-11-09] MEDS ORDERED: METOPROLOL TARTRATE 25 MG TAB PO SCH (21:00)
[2017-11-10] VITALS (27 sets, daily range): BP systolic 118–153; BP diastolic 59–99
[2017-11-10] MEDS: CEFUROXIME SODIUM 1.5 GM VIAL IVP SCH (03:58)
[2017-11-10] MEDS: METOCLOPRAMIDE 10 MG/2 ML VIAL IVP SCH ×3 (03:59→21:52)
[2017-11-10] MEDS: ZOSYN 3.375GM+NS 50ML 50 ML IV SCH ×2 (03:59→16:05)
[2017-11-10] MEDS: IPRATROPIUM/ALBUTEROL SULFATE 3 ML SOLUTION IH SCH ×6 (06:00→23:23)
[2017-11-10] MEDS ORDERED: AMIODARONE HCL 900 MG in DEXTROSE 5%-WATER 500 ML IV SCH (06:30)
[2017-11-10] MEDS ORDERED: AMIODARONE HCL 150 MG in DEXTROSE 5%-WATER 100 ML IV SCH (06:30)
[2017-11-10 07:04] LABS: ABG BASE EXCESS 4.2 mmol/L (-2.0-3.0); ABG HCO3 28.7 mmol/L (21.0-28.0); ABG OXYGEN SATURATION 95.3 % (95.0-99.0); ABG PCO2 42 mmHg (35-48)
[2017-11-10 07:34] LABS: BASOPHILS % (AUTO) 0.1 % (0.0-5.0); HEMATOCRIT 25.1 % (42-54); LYMPHOCYTES % (AUTO) 5.2 % (21.0-51.0); MEAN CORPUSCULAR HEMOGLOBIN 31.3 pg (27.0-33.0); MEAN CORPUSCULAR HGB CONC 32.7 g/dL (32.0-36.0); MEAN CORPUSCULAR VOLUME 95.8 fL (79-99); MONOCYTES % (AUTO) 9.7 % (3.0-13.0); PLATELET COUNT (AUTO) 179 K/uL (130-400); RED BLOOD CELL COUNT(AUTO) 2.62 MIL/uL (4.50-6.20)
[2017-11-10 07:36] LABS: POTASSIUM 4.2 mmol/L (3.5-5.1)
[2017-11-10 07:38] LABS: CREATININE 9.9 mg/dL (0.5-1.5)
[2017-11-10] MEDS: FAMOTIDINE/PF 20 MG/2 ML VIAL IV SCH (08:36)
[2017-11-10] MEDS: AMIODARONE HCL 200 MG TABLET PO SCH ×2 (08:36→16:05)
[2017-11-10] MEDS: CALCIUM ACETATE 667 MG CAPSULE PO SCH ×2 (08:36→16:05)
[2017-11-10] MEDS: DOXYCYCLINE HYCLATE 100 MG TABLET PO SCH ×2 (08:36→21:53)
[2017-11-10] MEDS: GUAIFENESIN 600 MG TABLET.ER PO SCH ×2 (08:36→21:53)
[2017-11-10] MEDS: ASPIRIN 81 MG EC TAB PO SCH (08:36)
[2017-11-10] MEDS: METOPROLOL TARTRATE 25 MG TAB PO SCH ×2 (08:36→16:05)
[2017-11-10] MEDS: CALCIUM GLUCONATE 1 GM in SODIUM CHLORIDE 0.9% 50 ML IV SCH (09:01)
[2017-11-10] MEDS ORDERED: GLUCAGON 1MG KIT 1 MG ML IM PRN (11:45)
[2017-11-10] MEDS ORDERED: DEXTROSE 50%-WATER 50 ML DISP.SYRIN IV PRN (11:45)
[2017-11-10] MEDS: INSULIN HUMULIN R 100 UNIT/ML 3ML SQ SCH ×2 (16:05→21:00)
[2017-11-10] MEDS ORDERED: LISINOPRIL 5 MG TABLET PO SCH (21:00)
[2017-11-10] MEDS: ATORVASTATIN CALCIUM 20 MG TABLET PO SCH (21:53)
[2017-11-11] VITALS (22 sets, daily range): BP systolic 124–172; BP diastolic 66–87
[2017-11-11] MEDS ORDERED: ALBUTEROL SULFATE 0.083% 2.5 MG/3 ML INH IH ONE ×2 (00:20)
[2017-11-11] MEDS: METOPROLOL TARTRATE 25 MG TAB PO SCH ×2 (01:08→09:27)
[2017-11-11] MEDS: AMIODARONE HCL 200 MG TABLET PO SCH ×4 (01:08→23:58)
[2017-11-11] MEDS: ZOSYN 3.375GM+NS 50ML 50 ML IV SCH ×2 (05:03→20:26)
[2017-11-11] MEDS: METOCLOPRAMIDE 10 MG/2 ML VIAL IVP SCH ×3 (05:04→20:15)
[2017-11-11 05:27] LABS: HEMATOCRIT 25.3 % (42-54); MEAN CORPUSCULAR HEMOGLOBIN 31.4 pg (27.0-33.0); MEAN CORPUSCULAR HGB CONC 33.4 g/dL (32.0-36.0); MEAN CORPUSCULAR VOLUME 94.1 fL (79-99); NUCLEATED RED BLOOD CELLS 0.1 % (0.0-0.19); PLATELET COUNT (AUTO) 191 K/uL (130-400); RED BLOOD CELL COUNT(AUTO) 2.69 MIL/uL (4.50-6.20); RED CELL DISTRIBUTION WIDTH 15.5 % (11.0-15.5); WHITE BLOOD COUNT (AUTO) 17.1 K/uL (4.8-10.8)
[2017-11-11 05:50] LABS: POTASSIUM 4.8 mmol/L (3.5-5.1)
[2017-11-11 05:55] LABS: CREATININE 11.9 mg/dL (0.5-1.5)
[2017-11-11] MEDS: IPRATROPIUM/ALBUTEROL SULFATE 3 ML SOLUTION IH SCH ×8 (06:00→23:58)
[2017-11-11] MEDS: INSULIN HUMULIN R 100 UNIT/ML 3ML SQ SCH ×4 (06:53→21:00)
[2017-11-11 06:54] LABS: ABG BASE EXCESS 1.6 mmol/L (-2.0-3.0); ABG HCO3 26.3 mmol/L (21.0-28.0); ABG OXYGEN SATURATION 95.3 % (95.0-99.0); ABG PCO2 42 mmHg (35-48)
[2017-11-11] MEDS ORDERED: ENOXAPARIN SODIUM 30 MG/0.3 ML SQ SCH (09:00)
[2017-11-11] MEDS: GUAIFENESIN 600 MG TABLET.ER PO SCH ×2 (09:26→22:00)
[2017-11-11] MEDS: ASPIRIN 81 MG EC TAB PO SCH (09:27)
[2017-11-11] MEDS: DOXYCYCLINE HYCLATE 100 MG TABLET PO SCH ×2 (09:27→22:00)
[2017-11-11] MEDS ORDERED: LISINOPRIL 5 MG TABLET ONE (09:31)
[2017-11-11] MEDS: CALCIUM ACETATE 667 MG CAPSULE PO SCH ×2 (09:33→17:00)
[2017-11-11] MEDS ORDERED: LISINOPRIL 10 MG TABLET PO SCH ×2 (12:15→21:00)
[2017-11-11] MEDS: METOPROLOL TARTRATE 50 MG TAB PO SCH (20:25)
[2017-11-11] MEDS: ATORVASTATIN CALCIUM 20 MG TABLET PO SCH (20:25)
[2017-11-11] MEDS: FAMOTIDINE 20MG TAB 20 MG TAB PO SCH (22:00)
[2017-11-11] MEDS: LISINOPRIL 20 MG TABLET PO SCH (22:00)
[2017-11-11] MEDS: ENOXAPARIN SODIUM 30 MG/0.3 ML SQ SCH (22:02)
[2017-11-12] VITALS (15 sets, daily range): BP systolic 140–179; BP diastolic 63–88
[2017-11-12 04:00] LABS: HEMATOCRIT 24.9 % (42-54); MEAN CORPUSCULAR HEMOGLOBIN 31.1 pg (27.0-33.0); MEAN CORPUSCULAR HGB CONC 32.9 g/dL (32.0-36.0); MEAN CORPUSCULAR VOLUME 94.4 fL (79-99); PLATELET COUNT (AUTO) 214 K/uL (130-400); RED BLOOD CELL COUNT(AUTO) 2.64 MIL/uL (4.50-6.20); WHITE BLOOD COUNT (AUTO) 12.8 K/uL (4.8-10.8)
[2017-11-12] MEDS: ZOSYN 3.375GM+NS 50ML 50 ML IV SCH ×2 (04:00→16:35)
[2017-11-12 04:10] LABS: POTASSIUM 4.3 mmol/L (3.5-5.1)
[2017-11-12 04:14] LABS: CREATININE 8.4 mg/dL (0.5-1.5)
[2017-11-12] MEDS: IPRATROPIUM/ALBUTEROL SULFATE 3 ML SOLUTION IH SCH ×7 (06:00→18:46)
[2017-11-12] MEDS: INSULIN HUMULIN R 100 UNIT/ML 3ML SQ SCH ×4 (07:08→20:59)
[2017-11-12] MEDS: FAMOTIDINE 20MG TAB 20 MG TAB PO SCH ×2 (07:50→20:53)
[2017-11-12] MEDS: GUAIFENESIN 600 MG TABLET.ER PO SCH ×2 (07:50→20:53)
[2017-11-12] MEDS: LISINOPRIL 20 MG TABLET PO SCH ×2 (07:50→20:53)
[2017-11-12] MEDS: ASPIRIN 81 MG EC TAB PO SCH (07:50)
[2017-11-12] MEDS: AMIODARONE HCL 200 MG TABLET PO SCH ×2 (07:50→16:35)
[2017-11-12] MEDS: CALCIUM ACETATE 667 MG CAPSULE PO SCH ×2 (07:50→16:35)
[2017-11-12] MEDS: METOPROLOL TARTRATE 50 MG TAB PO SCH ×2 (07:50→20:53)
[2017-11-12] MEDS: DOXYCYCLINE HYCLATE 100 MG TABLET PO SCH ×2 (07:50→20:53)
[2017-11-12] MEDS: ENOXAPARIN SODIUM 30 MG/0.3 ML SQ SCH (15:56)
[2017-11-12] MEDS: ATORVASTATIN CALCIUM 20 MG TABLET PO SCH (20:53)
[2017-11-13] VITALS (7 sets, daily range): BP systolic 147–167; BP diastolic 74–86
[2017-11-13] MEDS: AMIODARONE HCL 200 MG TABLET PO SCH ×3 (00:27→17:09)
[2017-11-13] MEDS: IPRATROPIUM/ALBUTEROL SULFATE 3 ML SOLUTION IH SCH ×8 (00:39→23:47)
[2017-11-13] MEDS: ZOSYN 3.375GM+NS 50ML 50 ML IV SCH ×2 (04:09→17:09)
[2017-11-13] MEDS: INSULIN HUMULIN R 100 UNIT/ML 3ML SQ SCH ×4 (06:11→21:00)
[2017-11-13] MEDS: LISINOPRIL 20 MG TABLET PO SCH ×2 (08:24→22:26)
[2017-11-13] MEDS: FAMOTIDINE 20MG TAB 20 MG TAB PO SCH ×2 (08:24→22:26)
[2017-11-13] MEDS: GUAIFENESIN 600 MG TABLET.ER PO SCH ×2 (08:24→22:25)
[2017-11-13] MEDS: ASPIRIN 81 MG EC TAB PO SCH (08:24)
[2017-11-13] MEDS: DOXYCYCLINE HYCLATE 100 MG TABLET PO SCH ×2 (08:24→22:26)
[2017-11-13] MEDS: ENOXAPARIN SODIUM 30 MG/0.3 ML SQ SCH (08:25)
[2017-11-13] MEDS: CALCIUM ACETATE 667 MG CAPSULE PO SCH ×2 (08:25→17:09)
[2017-11-13] MEDS: METOPROLOL TARTRATE 50 MG TAB PO SCH ×2 (08:25→22:27)
[2017-11-13] MEDS: AMLODIPINE BESYLATE 5 MG TAB PO SCH (12:11)
[2017-11-13] MEDS: ATORVASTATIN CALCIUM 20 MG TABLET PO SCH (22:25)
[2017-11-14] VITALS (7 sets, daily range): BP systolic 137–173; BP diastolic 68–87
[2017-11-14] MEDS: AMIODARONE HCL 200 MG TABLET PO SCH ×3 (00:12→16:59)
[2017-11-14] MEDS: ZOSYN 3.375GM+NS 50ML 50 ML IV SCH ×2 (04:19→16:59)
[2017-11-14] MEDS ORDERED: 0.9% SODIUM CHLORIDE 250 ML IV BAG IV PRN (05:45)
[2017-11-14] MEDS: IPRATROPIUM/ALBUTEROL SULFATE 3 ML SOLUTION IH SCH ×5 (06:00→23:18)
[2017-11-14] MEDS: INSULIN HUMULIN R 100 UNIT/ML 3ML SQ SCH ×4 (06:23→21:00)
[2017-11-14] MEDS: CALCIUM ACETATE 667 MG CAPSULE PO SCH ×2 (08:00→16:59)
[2017-11-14] MEDS ORDERED: TRAMADOL HCL 50 MG TABLET ONE (09:58)
[2017-11-14] MEDS ORDERED: TRAMADOL HCL 50 MG TABLET PO PRN (10:15)
[2017-11-14] MEDS: GUAIFENESIN 600 MG TABLET.ER PO SCH ×2 (10:19→22:16)
[2017-11-14] MEDS: AMLODIPINE BESYLATE 5 MG TAB PO SCH (10:20)
[2017-11-14] MEDS: METOPROLOL TARTRATE 50 MG TAB PO SCH ×2 (10:20→22:14)
[2017-11-14] MEDS: DOXYCYCLINE HYCLATE 100 MG TABLET PO SCH ×2 (10:20→22:14)
[2017-11-14] MEDS: LISINOPRIL 20 MG TABLET PO SCH (10:20)
[2017-11-14] MEDS: FAMOTIDINE 20MG TAB 20 MG TAB PO SCH ×2 (10:20→22:15)
[2017-11-14] MEDS: ASPIRIN 81 MG EC TAB PO SCH (10:20)
[2017-11-14] MEDS: TRAMADOL HCL 50 MG TABLET PO PRN (10:23)
[2017-11-14] MEDS: ENOXAPARIN SODIUM 30 MG/0.3 ML SQ SCH (10:24)
[2017-11-14] MEDS: ATORVASTATIN CALCIUM 20 MG TABLET PO SCH (22:15)
[2017-11-15] MEDS: AMIODARONE HCL 200 MG TABLET PO SCH ×3 (01:13→17:12)
[2017-11-15] MEDS: LISINOPRIL 20 MG TABLET PO SCH ×2 (01:13→08:18)
[2017-11-15] MEDS: ZOSYN 3.375GM+NS 50ML 50 ML IV SCH ×2 (03:47→17:12)
[2017-11-15 04:16] VITALS: BP 149/73
[2017-11-15] MEDS: IPRATROPIUM/ALBUTEROL SULFATE 3 ML SOLUTION IH SCH ×2 (05:56→11:09)
[2017-11-15] MEDS: INSULIN HUMULIN R 100 UNIT/ML 3ML SQ SCH ×3 (07:30→16:30)
[2017-11-15 07:36] VITALS: BP 191/85
[2017-11-15] MEDS: DOXYCYCLINE HYCLATE 100 MG TABLET PO SCH (08:18)
[2017-11-15] MEDS: ASPIRIN 81 MG EC TAB PO SCH (08:18)
[2017-11-15] MEDS: FAMOTIDINE 20MG TAB 20 MG TAB PO SCH (08:18)
[2017-11-15] MEDS: GUAIFENESIN 600 MG TABLET.ER PO SCH (08:18)
[2017-11-15] MEDS: CALCIUM ACETATE 667 MG CAPSULE PO SCH ×2 (08:18→17:12)
[2017-11-15] MEDS: AMLODIPINE BESYLATE 5 MG TAB PO SCH (08:18)
[2017-11-15] MEDS: METOPROLOL TARTRATE 50 MG TAB PO SCH (08:19)
[2017-11-15] MEDS: TRAMADOL HCL 50 MG TABLET PO PRN (08:21)
[2017-11-15] MEDS: ENOXAPARIN SODIUM 30 MG/0.3 ML SQ SCH (08:23)
[2017-11-15 10:11] VITALS: BP 142/55
[2017-11-15 12:00] VITALS: BP 149/67
[2017-11-15 16:00] VITALS: BP 133/60
== END 2017-11-15 19:45 | disposition left against medical advice (07) | DRG 233 ==
LOC: EDH 03:17 → EDHIP 06:47 → 2BH 16:21 → 2DH 11-06 16:08 → 2BH 11-06 17:15 → 2CV 11-08 12:14 → 2CH 11-09 13:45 → 2AH 11-13 16:38
PROVIDERS: ADMIT Internal Medicine Pulmonary Disease; ATTEND Internal Medicine Pulmonary Disease
PROC: 5A1D70Z Performance of Urinary Filtration, Intermittent, Less than 6 Hours Per Day (ICD-10-PCS; 2017-11-05)
PROC: 4A023N7 Measurement of Cardiac Sampling and Pressure, Left Heart, Percutaneous Approach (ICD-10-PCS; principal; 2017-11-06)
PROC: B2111ZZ Fluoroscopy of Multiple Coronary Arteries using Low Osmolar Contrast (ICD-10-PCS; 2017-11-06)
PROC: 5A1D70Z Performance of Urinary Filtration, Intermittent, Less than 6 Hours Per Day (ICD-10-PCS; 2017-11-07)
PROC: 021109W Bypass Coronary Artery, Two Arteries from Aorta with Autologous Venous Tissue, Open Approach (ICD-10-PCS; 2017-11-08)
PROC: 06BQ4ZZ Excision of Left Saphenous Vein, Percutaneous Endoscopic Approach (ICD-10-PCS; 2017-11-08)
PROC: 5A1935Z Respiratory Ventilation, Less than 24 Consecutive Hours (ICD-10-PCS; 2017-11-08)
PROC: 02100Z8 Bypass Coronary Artery, One Artery from Right Internal Mammary, Open Approach (ICD-10-PCS; 2017-11-08 09:30)
PROC: 5A1D70Z Performance of Urinary Filtration, Intermittent, Less than 6 Hours Per Day (ICD-10-PCS; 2017-11-09)
PROC: 5A1D70Z Performance of Urinary Filtration, Intermittent, Less than 6 Hours Per Day (ICD-10-PCS; 2017-11-11)
PROC: 5A09357 Assistance with Respiratory Ventilation, Less than 24 Consecutive Hours, Continuous Positive Airway Pressure (ICD-10-PCS; 2017-11-11)
PROC: 5A1D70Z Performance of Urinary Filtration, Intermittent, Less than 6 Hours Per Day (ICD-10-PCS; 2017-11-12)
PROC: 5A09357 Assistance with Respiratory Ventilation, Less than 24 Consecutive Hours, Continuous Positive Airway Pressure (ICD-10-PCS; 2017-11-12)
PROC: 5A1D70Z Performance of Urinary Filtration, Intermittent, Less than 6 Hours Per Day (ICD-10-PCS; 2017-11-14)
DX: I21.4 Non-ST elevation (NSTEMI) myocardial infarction (principal); I50.33 Acute on chronic diastolic (congestive) heart failure; J18.9 Pneumonia, unspecified organism; N18.6 End stage renal disease; J96.00 Acute respiratory failure, unspecified whether with hypoxia or hypercapnia; I13.2 Hypertensive heart and chronic kidney disease with heart failure and with stage 5 chronic kidney disease, or end stage renal disease; D62 Acute posthemorrhagic anemia; I97.89 Other postprocedural complications and disorders of the circulatory system, not elsewhere classified; J95.89 Other postprocedural complications and disorders of respiratory system, not elsewhere classified; J98.11 Atelectasis; E11.22 Type 2 diabetes mellitus with diabetic chronic kidney disease; E11.21 Type 2 diabetes mellitus with diabetic nephropathy; D63.8 Anemia in other chronic diseases classified elsewhere; Z53.21 Procedure and treatment not carried out due to patient leaving prior to being seen by health care provider; D89.9 Disorder involving the immune mechanism, unspecified; E11.40 Type 2 diabetes mellitus with diabetic neuropathy, unspecified; E78.5 Hyperlipidemia, unspecified; I25.110 Atherosclerotic heart disease of native coronary artery with unstable angina pectoris; I35.8 Other nonrheumatic aortic valve disorders; I48.0 Paroxysmal atrial fibrillation; T17.990A Other foreign object in respiratory tract, part unspecified in causing asphyxiation, initial encounter; X58.XXXA Exposure to other specified factors, initial encounter; F10.10 Alcohol abuse, uncomplicated; Y83.9 Surgical procedure, unspecified as the cause of abnormal reaction of the patient, or of later complication, without mention of misadventure at the time of the procedure; Y71.1 Therapeutic (nonsurgical) and rehabilitative cardiovascular devices associated with adverse incidents; Y92.238 Other place in hospital as the place of occurrence of the external cause; Y99.8 Other external cause status; Z79.82 Long term (current) use of aspirin; Z79.899 Other long term (current) drug therapy; Z82.49 Family history of ischemic heart disease and other diseases of the circulatory system; Z99.2 Dependence on renal dialysis; Z87.891 Personal history of nicotine dependence; Z74.01 Bed confinement status; Y93.89 Activity, other specified; I25.2 Old myocardial infarction; Z82.5 Family history of asthma and other chronic lower respiratory diseases; Z83.3 Family history of diabetes mellitus; Z86.718 Personal history of other venous thrombosis and embolism; Z91.19 Patient's noncompliance with other medical treatment and regimen; Z95.5 Presence of coronary angioplasty implant and graft; Z88.8 Allergy status to other drugs, medicaments and biological substances; Z79.4 Long term (current) use of insulin
CPT/HCPCS: 36415; 36600; 70450; 71045; 80048; 80053; 80061; 82330; 82435; 82550; 82553; 82803; 82947; 82948; 83036; 83605; 83690; 83735; 83874; 83880; 84100; 84132; 84295; 84443; 84484; 85018; 85025; 85027; 85347; 85610; 85730; 86850; 86900; 86901; 86922; 87040; 87804; 90935; 93005; 93306; 93458; 93880; 93970; 94002; 94003; 94010; 94640; 94660; 94664; 94667; 94668; 97039; 99291; A4218; A4357; A7048; C1894; C9113; J0171; J0282; J0360; J0610; J0697; J1644; J1650; J1815; J2001; J2250; J2260; J2270; J2440; J2543; J2704; J2710; J2720; J2765; J3010; J3475; J3480; J3490; J7030; J7040; J7060; Q9967